=== PATIENT | female | born 1990 ===

== ENCOUNTER 2019-12-28 09:30 | Inpatient (IN) | payer MEDICAID ==
--- NOTE | 2019-12-26 12:08 | History and Physical Report ---
History of Present Illness Date of examination: 12/24/19 Date of admission: 12/28/2019 Chief complaint: here for c/s and tubal ligation History of present illness: Pt here for c/s pre op. All risk/benefits/alternatives were d/w pt and questions were addressed and answered. Pt desires BTL also. Several questions were asked and addresed and answered. Consents signed and givne to pt to present at time of c/s. Pt preagnancy has been complicated by maternal obesity and ovarian cyst. Last examined was 10 to 12cm but appeared simple. Pt also desires removal if possible. EDC Calculations EDC Confirmation: 01/01/2020 Gestational Age: 26 2/7 weeks Past History : 2 Term Births: 1 Premature Births: 0 Living Children: 1 Para: 1 Mult. Births: 0 Prev : 1 Aborta: 0 Elect. Ab: 0 Spont. 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 Anemia Past Surgical History: Reviewed history and no changes required: X1 Past Medical History Anesthesia Complications: negative Anemia: negative Autoimmune Disorder: negative Bleeding Disorder: negative Blood Transfusions: negative Breast Disease: negative Diabetes: negative Heart Disease: negative Hypertension: negative Hepatitis/Liver Disease: negative Kidney Disease/UTI: negative Neurologic/Epilepsy/Migraines: negative Phlebitis/Varicosities: negative Psychiatric: negative Pulmonary Disease/Asthma: negative Thyroid Disease: negative Hospitalizations: negative Surgery (Non-book cleaner): X1 Abnormal PAP: negative LASHAY Exposure: negative Infertility: negative Uterine Anomaly: negative Uterine Surgery (not C/S): negative Other Gynecologic Problems: negative Infection History Hx of STD: none HIV Risk Eval: no Hepatitis B Risk Eval: low risk Personal hx. of genital herpes: no Partner hx. of genital herpes: no Rash, Viral, or Febrile illness since last LMP? no Varicella/Chicken Pox Status: Previous Disease TB Risk: no Genetic History Congenital Heart Defect: Mom: no Dad: no Nathaly Disease: Mom: no Dad: no Thalassemia Mom: no Dad: no Neural Tube Defect Mom: no Dad: no Down's Syndrome Mom: no Dad: no Denilson-Sachs Mom: no Dad: no Sickle Cell Disease/Trait Mom: no Dad: no Hemophilia Mom: no Dad: no Muscular Dystrophy Mom: no Dad: no Cystic Fibrosis Mom: no Dad: no Kassi Chorea Mom: no Dad: no Mental Retardation Mom: no Dad: no Fragile X Mom: no Dad: no Other Genetic/Chromosomal Disorder Mom: no Dad: no Child w/other defect Mom: no Dad: no Enviromental Exposures Xray Exposure: no Medication, drug, or alcohol use since LMP: no Chemical/Other Exposure: no Exposure to Cat Liter: no Hx of Parvovirus (Fifth Disease): no Occupational Exposure to Children: none Active Medications (reviewed today): PNV () Current Allergies (reviewed today): * SULFA (Critical) Past History Past Medical History: no pertinent history 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 History: denies: abnormal PAP smear Family/Genetic History: other (see hpi) Social history: no significant social history, - Obstetrical History Expected Date of Delivery: 01/01/20 Actual Gestation: 39 Week(s) 1 Day(s) : 2 Hx # Term Pregnancies: 1 Number of Living Children: 1 Review of Systems All systems: negative - Physical Exam Breasts: Positive: deferred Cardiovascular: Regular rate, Normal S1, Normal S2 Lungs: Positive: Clear to auscultation Abdomen: Positive: normal appearance, soft Genitourinary (Female): Positive: other (deferred) Anus/Rectum: Positive: normal perianal skin Extremities: Positive: normal Deep Tendon Reflex Grade: Normal +2 - Obstetrical FHR: auscultation normal Results All other labs normal. Assessment and Plan - Patient Problems (1) 39 weeks gestation of Status: Acute (2) Encounter for sterilization Status: Acute Plan to address problem: admitd prepare for BTL (3) Previous delivery affecting , antepartum Status: Acute Plan to address problem: -admit and prepare for c/s -consent signed and placed on the chart. (4) Simple ovarian cyst Status: Acute Plan to address problem: -evaluate at time of delivery -remove/drain if possible at time of surgery.
[2019-12-28] MEDS ORDERED: LACTATED RINGERS 1,000 ML IV SCH (10:00)
[2019-12-28] MEDS ORDERED: BICITRA ORAL LIQD 30ML PO NR (10:00)
[2019-12-28] MEDS ORDERED: FAMOTIDINE 20 MG/2 ML INJ IV NR (10:00)
[2019-12-28] MEDS ORDERED: ceFAZolin/Water 2 GM/20 ML 2 GM/20 ML SYRINGE IV NR (10:00)
[2019-12-28] MEDS ORDERED: OXYTOCIN 20 UNIT/1000ML DRIP 20 UNITS/1,000 ML BAG IV SCH (10:00)
[2019-12-28] MEDS ORDERED: EMLA CREAM 5 GM TP PRN (10:00)
[2019-12-28] MEDS ORDERED: METOCLOPRAMIDE 10 MG/2 ML INJ IV NR (10:00)
--- NOTE | 2019-12-28 10:36 | Anesthesia Day of Surgery ---
Anesthesia Day of Surgery - Day of Surgery Patient Examined: Yes Patient H&P Reviewed: Yes Patient is NPO: Yes
--- NOTE | 2019-12-28 10:36 | Anesthesia Consultation ---
Anesthesia Consult and Med Hx Date of service: 12/28/19 - Airway Anesthetic Teeth Evaluation: Good ROM Head & Neck: Adequate Mental/Hyoid Distance: Adequate Mallampati Class: Class II Intubation Access Assessment: Good - Pulmonary Exam CTA: Yes - Cardiac Exam Cardiac Exam: RRR - Pre-Operative Health Status ASA Pre-Surgery Classification: ASA2 Proposed Anesthetic Plan: Spinal
[2019-12-28 11:09] LABS: Basophils % (Auto) 0.2 % (0.0-1.8); Eosinophils # (Auto) 0.1 K/mm3 (0.0-0.4); Eosinophils % (Auto) 0.8 % (0.0-4.3); Hematocrit 37.7 % (30.3-42.9); Hemoglobin 12.8 gm/dl (10.1-14.3); Lymphocytes # (Auto) 1.7 K/mm3 (1.2-5.4); Lymphocytes % (Auto) 21.2 % (13.4-35.0); Mean Corpuscular HGB Conc 34 % (30-34); Mean Corpuscular Volume 86 fl (79-97); Monocytes # (Auto) 0.5 K/mm3 (0.0-0.8); Monocytes % (Auto) 6.6 % (0.0-7.3); Platelet Count 243 K/mm3 (140-440); Red Blood Count 4.39 M/mm3 (3.65-5.03); Red Cell Distribution Width 15.7 % (13.2-15.2)
[2019-12-28] MEDS ORDERED: DEXMEDETOMIDINE 200 MCG/2 ML VIAL IV ONE (11:31)
[2019-12-28] MEDS ORDERED: ONDANSETRON 4 MG/2 ML INJ ONE (11:31)
[2019-12-28] MEDS ORDERED: PHENYLEPHRINE/NS 1,000 MCG/10 ML SYRINGE (OR USE) IV ONE (12:00)
[2019-12-28] MEDS ORDERED: OXYTOCIN 10 UNIT/1 ML INJ ONE (12:00)
[2019-12-28] MEDS ORDERED: KETOROLAC 30 MG/1 ML INJ IV ONE (12:15)
[2019-12-28] MEDS ORDERED: ONDANSETRON 4 MG/2 ML INJ IV ONE (12:15)
[2019-12-28] MEDS ORDERED: diphenhydrAMINE 50 MG/ML VIAL IV ONE (12:15)
[2019-12-28] MEDS ORDERED: KETOROLAC 30 MG/1 ML INJ ONE (12:22)
[2019-12-28] MEDS ORDERED: diphenhydrAMINE 50 MG/ML VIAL ONE (12:22)
[2019-12-28] MEDS ORDERED: dexAMETHasone 20 MG/5 ML VIAL ONE (12:22)
[2019-12-28] MEDS ORDERED: NALOXONE 0.4 MG/1 ML INJ IV PRN (13:22)
[2019-12-28] MEDS ORDERED: LANOLIN/ZINC/DIMETHICONE (LANSINOH) 7 GM TP PRN (13:22)
[2019-12-28] MEDS ORDERED: WITCH HAZEL/ GLYCERIN PAD TP PRN (13:22)
[2019-12-28] MEDS ORDERED: ONDANSETRON 4 MG/2 ML INJ IV PRN (13:22)
--- NOTE | 2019-12-28 13:32 | Post Anesthesia Evaluation ---
- Post Anesthesia Evaluation Patient Participated: Yes Airway Patent: Yes Stable Respiratory Function: Yes Nausea/Vomiting: No Temp > 96.8F: Yes Pain Manageable: Yes Adequeate Hydration: Yes Anesthesia Complications: No Block Receding Appropriately: Yes Patient on Ventilator: No
--- NOTE | 2019-12-28 13:34 | Progress Note ---
Spinal Anesthesia Block - Spinal Anesthesia Block Start Time: 11:40 Stop Time: 11:45 Performed by:: LUCRECIA CAMPBELL Procedure: Spinal anesthesia block is being performed for repeat . H&P, labs have been reviewed. Patient's questions and concerns have been answered. Informed consent has been performed. Timeout has was performed. Patient in sitting position on side of bed. Sterile prep and drape was performed. 3 mL 1% lid ocaine skin wheal at L 3-L 4. Needle introducer advanced. 25-gauge spinal needle advanced, clear CSF negative blood. 1.5 mL 0.75% bupivacaine with 10 mcg Precedex spinal dose was given. All needles removed. Patient tolerated procedure well.
--- NOTE | 2019-12-28 13:42 | Operative Report ---
Operative Report Operative Report: Date of procedure: 12/28/2019 Pre-operative diagnosis: 39 weeks gestation Previous section Ovarian cyst Desires permanent sterilization Post-operative diagnosis: Same Procedure name(s): Repeat low transverse section via Pfannenstiel skin incision Right salpingectomy Left modified Yuridia tubal ligation Right cystectomy Surgeon: Dr. Alcantar Director Of Dance: Ms. Yarely Mera, RIVET SORTER Anesthesia: Spinal EBL: 1 L Urine output: 50 mL of clear urine out at end of procedure Fluids: 1400 mL Findings: Liveborn female weight 7 pounds 2 ounces Apgars of 8 and 9 at 1 and 5 minutes Normal left fallopian tube and ovary What appears to be a right ovarian cyst approximately 12 cm in diameter clear fluid drained from the cyst prior to cystectomy Right fallopian tube wrapped around ovarian cyst at the fimbriated edge. Indications: Patient presents for repeat section with bilateral tubal ligation. Throughout patient was being followed with right ovarian cyst that appears simple in nature on sonogram. Patient was taken to the operating room for repeat section and any other indicated procedures. Procedure: Patient was taking to the operating room. Patient was then prepped and draped in sterile fashion after anesthesia was found to be adequate. A low transverse skin incision was made with the scalpel through previous incisional scar and carried down to the underlying layer of fascia with the Bovie. The fascia was then incised in the midline and this incision was extended bilaterally with the Bovie. The superior aspect of the fascia was grasped with Elayne clamps tented upward and dissected off of the anterior rectus muscles with the scalpel. In similar fashion the inferior aspect of the fascia was grasped with Elayne clamps tented upward and dissected off of the anterior rectus muscles. The rectus muscles were then bluntly divided in the midline. The peritoneum was identified and entered into sharply. The Elgin retractor was placed. The bladder blade was placed. [The bladder flap was created using the Metzenbaum scissors.] The bladder blade was replaced. [The Elgin retractor was placed.] A lower transverse uterine incision was made with the scalpel and extended bilaterally with the bandage scissors. Artificial rupture of membranes was performed yielding [clear amniotic fluid]. The 's head was then delivered atraumatically. The anterior shoulder and rest of delivered without difficulty. The umbilical cord was clamped x2. The cord was cut. The was then placed in sterile bassinet. [The cord blood was collected.] The placenta was manually extracted in its entirety. The uterus was exteriorized and cleared of all clots and debris. The uterine incision was closed using 0 Vicryl in a running locking fashion. A second imbricating layer of the same suture was then created. Attention was then turned to the right adnexa in which the above-stated right ovarian cyst was noted. A small puncture was made in the cyst allowed complete drainage and deflation of the cyst. The cyst was clamped cauterized and transected from the right ovary. Excellent hemostasis was noted. The right fallopian tube that was remaining was then cauterized transected and removed and passed off to pathology. Attention was then turned to the left fallopian tube. A knuckle of the fallopian tube was suture ligated 2 and transected. Portion of tube was then handed off for pathology. The posterior cul-de-sac was copiously irrigated. The uterus was returned to the abdomen. The Elgin retractor was removed from the abdomen. He will blast was placed along the uterine incision as well as along the adnexa. Excellent hemostasis was noted. The gutters were also irrigated. The anterior rectus muscles were reapproximated using 3-0 Vicryl. The anterior rectus fascia was reapproximated using 0 Vicryl in a running fashion. The subcuticular fat was reapproximated using 2-0 Vicryl in a running fashion. The skin was reapproximated with a 4-0 Monocryl with a subcuticular stitch.. The patient tolerated the procedure well. Sponge lap and needle counts were all correct x3. Patient was taken to the recovery room awake and in stable condition.
[2019-12-28] MEDS: KETOROLAC 30 MG/1 ML INJ IV PRN (17:54)
[2019-12-28] MEDS: D5W/LACTATED RINGERS 1,000 ML IV SCH (17:56)
[2019-12-28] MEDS: ceFAZolin/NS 1 GM/50 ML 1 GM/50 ML BAG IV SCH (21:00)
[2019-12-29] MEDS: KETOROLAC 30 MG/1 ML INJ IV PRN (00:07)
[2019-12-29] MEDS: D5W/LACTATED RINGERS 1,000 ML IV SCH (00:12)
[2019-12-29 01:51] LABS: Hematocrit 27.8 % (30.3-42.9); Hemoglobin 9.4 gm/dl (10.1-14.3)
[2019-12-29] MEDS: ceFAZolin/NS 1 GM/50 ML 1 GM/50 ML BAG IV SCH (04:57)
[2019-12-29] MEDS ORDERED: DIPHtheria,PERTUSSIS(ACELL),TETANUS VACCINE/PF 0.5 ML VIAL IM ONE (06:00)
[2019-12-29] MEDS: HYDROcodone/ACETAMINOPHEN 5-325 MG TAB PO PRN (06:07)
[2019-12-29] MEDS: IBUPROFEN 800 MG TAB PO PRN ×2 (12:03→17:49)
--- NOTE | 2019-12-29 17:05 | Progress Note ---
Assessment and Plan A: 29 y.o. s/p rpt . Stable and doing well. P: Continue with post op/ care. Advanced diet as tolerated. Encourage ambulation in room. Subjective - Subjective Date of service: 12/29/19 (Pt doing well. C/o external vaginal itching. ) Patient reports: appetite normal, voiding normally, pain well controlled, ambulating normally Morgan: doing well Objective - Vital Signs Latest vital signs: Vital Signs Temp Pulse Resp BP Pulse Ox 12/29/19 07:52 98.1 F 91 H 18 116/78 98 12/29/19 06:07 18 12/29/19 04:33 97.9 F 93 H 20 101/69 98 12/29/19 00:24 99.1 F 93 H 18 104/68 99 12/29/19 00:07 20 12/28/19 20:22 98.3 F 106 H 20 96/63 96 12/28/19 17:54 20 Intake and Output 12/29/19 12/29/19 12/29/19 06:59 14:59 22:59 Intake Total 1263.333 Output Total 550 Balance 713.333 Intake: IV 783.333 D5lr 1,000 ml @ 125 mls/ 783.333 hr IV DIRECT EDNA Rx#: [id number] Intake, Free Water 480 Output: Urine 550 Indwelling Catheter 450 Void 100 Other: Total, Output Amount 100 - Exam Breasts: Present: deferred Cardiovascular: Present: Regular rate Lungs: Present: Normal air movement Abdomen: Present: normal appearance, soft Vulva: both: normal Uterus: Present: normal, firm Extremities: Present: normal Deep Tendon Reflex Grade: Normal +2 Incision: Present: normal, dry, intact, dressed Comments: Pt with c/o vaginal itching. States that it is on the outside. Order for hydrocortisone placed. Will continue to monitor. - Labs Labs: Abnormal lab results 12/29/19 Range/Units 00:46 Hgb 9.4 L D (10.1-14.3) gm/dl Hct 27.8 L D (30.3-42.9) %
[2019-12-29] MEDS: SIMETHICONE 80 MG CHEW TAB PO PRN (17:48)
[2019-12-29] MEDS ORDERED: HYDROCORTISONE 1% CREAM 28.4GM TP PRN (18:06)
[2019-12-30] MEDS: SIMETHICONE 80 MG CHEW TAB PO PRN (03:56)
--- NOTE | 2019-12-30 08:00 | Discharge Summary ---
Providers - Providers Date of Admission: 12/28/19 09:30 Date of discharge: 12/30/19 Attending physician: JOAO PEREZ Primary care physician: JOAO PEREZ Hospitalization Reason for admission: repeat c/s Condition: Good Pertinent studies: postop H&H 9.4/27.8, asymptomatic for anemia, anemia due to acute blood loss Procedures: repeat c/s with sterilization Hospital course: uncomplicated repeat c/s and postop course Disposition: [place]- TO HOME OR SELFCARE - Discharge Diagnoses (1) delivery delivered Status: Acute (2) Encounter for sterilization Status: Acute Core Measure Documentation - Palliative Care Palliative Care/ Comfort Measures: Not Applicable - Core Measures Any of the following diagnoses?: none Exam - Constitutional Vitals: Temp Pulse Resp BP Pulse Ox 98.5 F 96 H 17 117/72 99 12/30/19 00:45 12/30/19 00:45 12/30/19 00:45 12/30/19 00:45 12/30/19 00:45 General appearance: Present: no acute distress, well-nourished - EENT Eyes: Present: PERRL ENT: hearing intact, clear oral mucosa - Neck Neck: Present: supple, normal ROM - Respiratory Respiratory effort: normal Respiratory: bilateral: CTA - Cardiovascular Rhythm: regular - Extremities Extremities: pulses symmetrical, No edema - Abdominal General gastrointestinal: Present: soft, non-tender, non-distended, normal bowel sounds Female genitourinary: Present: normal - Integumentary Integumentary: Present: clear, warm, dry - Musculoskeletal Musculoskeletal: gait normal, strength equal bilaterally - Psychiatric Psychiatric: appropriate mood/affect, intact judgment & insight - Neurologic Neurologic: CNII-XII intact, moves all extremities - Additional findings Additional findings: breast feeding, lochia scant, fundus firm, incision D&I with steristrips Plan Activity: advance as tolerated Diet: regular Wound: open to air, keep clean and dry Follow up with: JOAO PEREZ MD [Primary Care Provider] - 7 Days (Congratulations! Please call [phone] to schedule your incision check in 1 week. Call for any questions or concerns. ) Prescriptions: Docusate Sodium [Colace] 100 mg PO BID PRN #60 capsule PRN Reason: Constipation Ferrous Sulfate [Feosol 325 MG tab] 325 mg PO QDAY #60 tablet Ibuprofen [Motrin 800 MG tab] 800 mg PO Q8HR PRN #30 tablet PRN Reason: Pain, Moderate (4-6) oxyCODONE /ACETAMINOPHEN [Percocet 5/325] 1 tab PO Q4HR #30 tab
[2019-12-30] MEDS: HYDROcodone/ACETAMINOPHEN 5-325 MG TAB PO PRN (14:12)
[2019-12-30] MEDS: IBUPROFEN 800 MG TAB PO PRN (14:13)
[2019-12-30 16:11] VITALS: BP 123/70
== END 2019-12-30 15:00 | disposition home or self-care (01) | DRG 765 ==
LOC: APU 09:30 → OB 15:39
PROVIDERS: ADMIT Obstetrics & Gynecology; ATTEND Obstetrics & Gynecology
PROC: 10D00Z1 Extraction of Products of Conception, Low, Open Approach (ICD-10-PCS; principal; 2019-12-28)
PROC: 0UB70ZZ Excision of Bilateral Fallopian Tubes, Open Approach (ICD-10-PCS; 2019-12-28)
PROC: 0UB00ZZ Excision of Right Ovary, Open Approach (ICD-10-PCS; 2019-12-28)
PROC: 3E0234Z Introduction of Serum, Toxoid and Vaccine into Muscle, Percutaneous Approach (ICD-10-PCS; 2019-12-29)
DX: O34.211 Maternal care for low transverse scar from previous cesarean delivery (principal); D62 Acute posthemorrhagic anemia; O99.214 Obesity complicating childbirth; O99.02 Anemia complicating childbirth; O34.83 Maternal care for other abnormalities of pelvic organs, third trimester; N83.299 Other ovarian cyst, unspecified side; E66.9 Obesity, unspecified; Z3A.39 39 weeks gestation of pregnancy; Z37.0 Single live birth; Z88.2 Allergy status to sulfonamides; Z23 Encounter for immunization; Z30.2 Encounter for sterilization
CPT/HCPCS: 36415; 85014; 85018; 85025; 86850; 86900; 86901; 88112; 88302; 88305; 88307; G0378; A6250; J0690; J1100; J1200; J1885; J2370; J2405; J2590; J2765; J3490; J7120; J7121